=== PATIENT | female | born 2000 | race Caucasian/White ===

== ENCOUNTER 2023-07-30 12:51 | Outpatient (CLI) | payer OTHER, SELFPAY ==
[2023-07-30 14:58] LABS: Strep A DNA Probe* NOT DETECTED (Not Detectd)
== END 2023-07-30 12:52 | disposition home or self-care (01) ==
LOC: FBOREF 12:51
PROVIDERS: Visit Provider Family Medicine
DX: J02.9 Acute pharyngitis, unspecified (principal)
CPT/HCPCS: 87651